=== PATIENT | male | born 1970 | race Caucasian/White ===

== ENCOUNTER 2017-06-07 01:13 | Emergency (ER) | payer OTHER ==
[~2017-06-07] VITALS: Ht 180.3 cm; Wt 97.0 kg
[2017-06-07] MEDS ORDERED: SODIUM CHLORIDE 0.9% 1,000 ML IV ONE (01:29)
[2017-06-07 01:44] LABS: BASOPHILS % 0.5 % (0.0-2.0); HEMATOCRIT. 46.8 % (42.0-52.0); HEMOGLOBIN. 16.7 g/dL (14.0-18.0); LYMPHOCYTES % 9.2 % (20.0-50.0); MEAN CORPUSCULAR HEMOGLOBIN 30.7 pg (28.0-32.0); MEAN CORPUSCULAR VOLUME 86.1 fL (80.0-94.0); MEAN PLATELET VOLUME 10.4 fl (7.4-10.4); MONOCYTES % 5.3 % (2.0-8.0); PLATELET 234 x1000/uL (130-400); RED BLOOD CELL COUNT 5.44 mill/uL (4.7-6.1); RED CELL DISTRIBUTION WIDTH 12.9 % (11.6-14.6)
[2017-06-07 01:50] LABS: CHLORIDE 106 mEq/L (98-107)
[2017-06-07 01:54] LABS: CARBON DIOXIDE 25 mEq/L (21-32); ETHANOL BLOOD < 10 mg/dL
[2017-06-07 02:11] LABS: CLARITY URINE CLEAR (CLEAR); COLOR URINE YELLOW (YELLOW); GLUCOSE URINE NEGATIVE (NEGATIVE); KETONES URINE NEGATIVE (NEGATIVE); LEUKOCYTE ESTERASE URINE NEGATIVE (NEGATIVE); NITRITE URINE NEGATIVE (NEGATIVE); OCCULT BLOOD URINE NEGATIVE (NEGATIVE); PH URINE 6.5 (4.5-8.0); PROTEIN URINE NEGATIVE (NEGATIVE); UROBILINOGEN URINE 0.2 E.U./dL (0.2-1.0)
[2017-06-07 02:52] LABS: *AMPHETAMINES SCREEN URINE PRESUMTIVE POSITIVE (NEGATIVE); *BARBITURATES SCREEN URINE NEGATIVE (NEGATIVE); *BENZODIAZEPINES SCREEN URINE NEGATIVE (NEGATIVE); *COCAINE SCREEN URINE NEGATIVE (NEGATIVE); CANNABINOID URINE SCREEN NEGATIVE (NEGATIVE); METHADONE URINE SCREEN NEGATIVE (NEGATIVE); PHENCYCLIDINE URINE SCREEN NEGATIVE (NEGATIVE)
[2017-06-07 02:54] LABS: OPIATES URINE SCREEN NEGATIVE (NEGATIVE)
[2017-06-07] MEDS ORDERED: LORAZEPAM 2MG/ML CPJ IV ONE (03:00)
[2017-06-07] MEDS ORDERED: LORAZEPAM 1MG TABLET PO ONE (03:30)
[2017-06-07] MEDS ORDERED: OLANZAPINE 10 MG/VIAL IM ONE ×3 (08:00→08:30)
[2017-06-07] MEDS ORDERED: LORAZEPAM 2MG/ML CPJ IM ONE (08:30)
[2017-06-07 14:14] VITALS: BP 133/67
== END 2017-06-07 14:31 | disposition home or self-care (01) ==
LOC: ER 01:25
DX: T43.621A Poisoning by amphetamines, accidental (unintentional), initial encounter (principal); F23 Brief psychotic disorder; F15.188 Other stimulant abuse with other stimulant-induced disorder; F91.8 Other conduct disorders; R00.2 Palpitations; Z78.1 Physical restraint status; Y92.89 Other specified places as the place of occurrence of the external cause
CPT/HCPCS: 36415; 80053; 80305; 80307; 80329; 81003; 85025; 96361; 96372; 96374; 99284; G0482; J2060; J3490; J7030